=== PATIENT | male | born 1990 | race African-American/Black ===

== ENCOUNTER 2017-05-21 21:46 | Emergency (ER) | payer OTHER ==
[2017-05-21 23:08] LABS: Hematocrit 36 % (42-52); Hemoglobin 12.1 g/dl (14.0-18.0); Mean Corpuscular HGB Conc 33 g/dl (31-36); Mean Corpuscular Hemoglobin 30 pg (27-31); Mean Corpuscular Volume 89 fL (80-94); Mean Platelet Volume 8 um3 (7.4-10.4); Red Blood Count 4.09 10^6/ul (4.0-5.4); Red Cell Distribution Width 14 % (10.5-15); White Blood Count 6.9 10^3/ul (3.5-10.8)
[2017-05-21] MEDS ORDERED: NS 0.9% 1000 ML* 1,000 ML IV ONE (23:18)
[2017-05-21] MEDS ORDERED: Morphine INJ* 4 MG/ML 1 ML SYRINGE IV ONE (23:18)
[2017-05-21] MEDS ORDERED: Ondansetron INJ* 2 MG/ML VIAL IV ONE (23:18)
[2017-05-21] MEDS ORDERED: Ketorolac INJ* 30 MG/ML 1 ML VIAL IV PUSH ONE (23:18)
[2017-05-21 23:24] LABS: ALT 17 U/L (7-52); Alkaline Phosphatase 76 U/L (34-104); BUN/Creatinine Ratio 16.3 (8-20); Blood Urea Nitrogen 14 mg/dL (6-24); CO2 Carbon Dioxide 28 mmol/L (22-32); Calcium 9.1 mg/dL (8.6-10.3); Chloride 107 mmol/L (101-111); EGFR African American 135.2 (>60); EGFR Non-African American 105.1 (>60); Globulin 2.4 g/dL (2-4); Glucose 99 mg/dL (70-100); Lipase 23 U/L (11.0-82.0); Sodium 139 mmol/L (133-145); Total Protein 6.4 g/dL (6.4-8.9)
[2017-05-21 23:25] LABS: Anion Gap 4 mmol/L (2-11); Potassium 4.6 mmol/L (3.5-5.0)
[2017-05-21 23:26] LABS: AST 30 U/L (13-39)
[2017-05-22] MEDS ORDERED: Iohexol 300* (CONTRAST) 10 ML SDV IV ONE (00:34)
--- NOTE | 2017-05-22 01:42 | ED ---
Abdominal Pain/Male - HPI Summary HPI Summary: 27M presents with RLQ pain since early today. He states it gets worst when he jumps up and down and if he eats something. He admits to nausea but denies any vomiting, constipation, or diarrhea. He has never had this before. He denies any previous abdominal surgeries. He denies any fever, dysuria, hematuria, flank pain. He has not taken anything for his pain. - History of Current Complaint Chief Complaint: EDAbdPain Stated Complaint: ABD PAIN Time Seen by Provider: 05/21/17 22:33 Pain Intensity: 7 - Allergies/Home Medications Allergies/Adverse Reactions: Allergies Allergy/AdvReac Type Severity Reaction Status Date / Time No Known Allergies Allergy Verified 05/21/17 21:53 PMH/Surg Hx/FS Hx/Imm Hx Endocrine/Hematology History: Denies: Hx Diabetes Cardiovascular History: Denies: Hx Hypertension History: Denies: Hx Dialysis, Hx Renal Disease Infectious Disease History: No Infectious Disease History: Denies: Traveled Outside the [place] in Last 30 Days - Family History Known Family History: Positive: Cardiac Disease - Social History Alcohol Use: None Substance Use Type: Reports: None Smoking Status (MU): Never Smoked Tobacco Review of Systems Negative: Fever Negative: Chest Pain Negative: Shortness Of Breath Positive: Abdominal Pain, Nausea. Negative: Vomiting, Diarrhea All Other Systems Reviewed And Are Negative: Yes Physical Exam Triage Information Reviewed: Yes Vital Signs On Initial Exam: Initial Vitals Temp Pulse Resp BP Pulse Ox 97.3 F 54 16 125/66 100 05/21/17 21:51 05/21/17 21:51 05/21/17 21:51 05/21/17 21:51 05/21/17 21:51 Vital Signs Reviewed: Yes Appearance: Positive: Well-Appearing Skin: Positive: Warm, Dry Head/Face: Positive: Normal Head/Face Inspection Eyes: Positive: Normal, Conjunctiva Clear Respiratory/Lung Sounds: Positive: Clear to Auscultation, Breath Sounds Present Cardiovascular: Positive: Normal, RRR Abdomen Description: Positive: Soft, Other: - moderate tenderness in RLQ, no rebound, pos rovsings Bowel Sounds: Positive: Present - Maritza Coma Scale Coma Scale Total: 15 Diagnostics - Vital Signs Vital Signs Temp Pulse Resp BP Pulse Ox 05/21/17 23:48 16 05/21/17 21:51 97.3 F 54 16 125/66 100 - Laboratory Lab Results: Lab Results 05/21/17 05/21/17 Range/Units 22:55 22:55 WBC 6.9 (3.5-10.8) 10^3/ul RBC 4.09 (4.0-5.4) 10^6/ul Hgb 12.1 L (14.0-18.0) g/dl Hct 36 L (42-52) % MCV 89 (80-94) fL MCH 30 (27-31) pg MCHC 33 (31-36) g/dl RDW 14 (10.5-15) % Plt Count 229 (150-450) 10^3/ul MPV 8 (7.4-10.4) um3 Neut % (Auto) 40.5 (38-83) % Lymph % (Auto) 44.2 (25-47) % Webster % (Auto) 11.9 H (1-9) % Eos % (Auto) 2.4 (0-6) % Baso % (Auto) 1.0 (0-2) % Absolute Neuts (auto) 2.8 (1.5-7.7) 10^3/ul Absolute Lymphs (auto) 3.0 (1.0-4.8) 10^3/ul Absolute Monos (auto) 0.8 (0-0.8) 10^3/ul Absolute Eos (auto) 0.2 (0-0.6) 10^3/ul Absolute Basos (auto) 0.1 (0-0.2) 10^3/ul Absolute Nucleated RBC 0.01 10^3/ul Nucleated RBC % 0.1 Sodium 139 (133-145) mmol/L Potassium 4.6 (3.5-5.0) mmol/L Chloride 107 (101-111) mmol/L Carbon Dioxide 28 (22-32) mmol/L Anion Gap 4 (2-11) mmol/L BUN 14 (6-24) mg/dL Creatinine 0.86 (0.67-1.17) mg/dL Est GFR ( Amer) 135.2 (>60) Est GFR (Non-Af Amer) 105.1 (>60) BUN/Creatinine Ratio 16.3 (8-20) Glucose 99 (70-100) mg/dL Calcium 9.1 (8.6-10.3) mg/dL Total Bilirubin 1.00 (0.2-1.0) mg/dL AST 30 (13-39) U/L ALT 17 (7-52) U/L Alkaline Phosphatase 76 (34-104) U/L C-React Prot High Sens < 0.20 mg/L Total Protein 6.4 (6.4-8.9) g/dL Albumin 4.0 (3.2-5.2) g/dL Globulin 2.4 (2-4) g/dL Albumin/Globulin Ratio 1.7 (1-3) Lipase 23 (11.0-82.0) U/L Result Diagrams: 05/21/17 22:55 05/21/17 22:55 Lab Statement: Any lab studies that have been ordered have been reviewed, and results considered in the medical decision making process. - CT abd CT Interpretation: No Acute Changes - normal appendix CT Interpretation Completed By: Radiologist Abdominal Pain Fem Course/Dx - Course Course Of Treatment: 27M presents with RLQ pain since early today. He states it gets worst when he jumps up and down and if he eats something. He admits to nausea but denies any vomiting, constipation, or diarrhea. He has never had this before. He denies any previous abdominal surgeries. He denies any fever, dysuria, hematuria, flank pain. normal wbc, crp. u/a. CT abdomen normal. explained due not have cause for pain but normal appendix. patient understands and agrees with plan. - Diagnoses Differential Diagnosis/HQI/PQRI: Appendicitis, Urinary Tract Infection, Other - gastroenteritis Provider Diagnoses: Abdominal pain Discharge - Discharge Plan Condition: Good Disposition: HOME Patient Education Materials: Abdominal Pain (ED) Referrals: Sandee NOGUEIRA,Richard Ronquillo [Primary Care Provider] - Additional Instructions: Your pain is not caused by any surgical emergency Drink small amounts of fluid as tolerated When able to eat follow BRAT diet: Bananas, rice, applesauce, toast Take ibuprofen or Tylenol for pain as needed every 6 hours Return to ED if develop any new or worsening symptoms
[2017-05-22 01:55] LABS: Urine Bilirubin Negative (Negative); Urine Glucose Negative (Negative); Urine Nitrite Negative (Negative)
[2017-05-22 02:11] VITALS: BP 109/72
--- NOTE | 2017-05-22 08:05 | RAD ---
CLINICAL HISTORY: Right lower quadrant pain COMPARISON: None TECHNIQUE: Contrast enhanced CT examination of the abdomen and pelvis from the lung bases through the initial tuberosities. The patient received 91 mL Omnipaque 300 intravenously prior to imaging.The patient received oral contrast as well prior to imaging. FINDINGS: VISUALIZED LUNG BASES: The visualized lung bases are grossly clear. There is no pleural effusion. ABDOMEN AND PELVIS: The liver, spleen, pancreas and adrenal glands are grossly normal in appearance. The gallbladder is normal. The kidneys are normal in appearance without focal mass, calcification or signs of hydronephrosis. There are contrast has progressed as far as the transverse colon. The small and large bowel are not distended. The patient's normal appendix is identified in the right lower quadrant with contrast in the lumen (sagittal image 54). There is no gross retroperitoneal or mesenteric lymphadenopathy. The pelvic viscera is normal in appearance. The abdominal aorta and iliac arteries are normal in course and diameter. There are no sinister bone lesions. IMPRESSION: Normal CT examination.
== END 2017-05-22 02:11 | disposition home or self-care (01) ==
LOC: ED 21:46
DX: R10.31 Right lower quadrant pain (principal)
CPT/HCPCS: 36415; 74177; 80053; 81003; 83690; 85025; 86141; 86703; 96360; 96374; 96375; 99282; J1885; J2270; J2405; Q9967